=== PATIENT | female | born 1985 | race African-American/Black ===

== ENCOUNTER 2017-08-30 04:40 | Emergency (ER) | payer MEDICAID ==
[~2017-08-30] VITALS: Ht 167.6 cm; Wt 54.4 kg
[2017-08-30] MEDS ORDERED: Haloperidol Lactate 5 MG in D5W 55 ML IVPB ONE (05:15)
--- NOTE | 2017-08-30 05:35 | Emergency Room Report ---
History of Present Illness General Chief Complaint: Nausea Source: Patient Present Illness HPI This is a 32-year-old female with history diabetes. She also has a history of cyclic vomiting syndrome and gastroparesis. She presents with chief complaint abdominal pain with nausea and vomiting for the last 24 hours. No fever chills but no diarrhea. Similar symptom in the past. She been admitted to [facility] and [facility] multiple times. Most recently last month. Pain is 9 out of 10 sharp in nature. She had workup including endoscopy, ultrasound, multiple CT scan. Also had swallowing study and gastric emptying study. Allergies: Coded Allergies: NO KNOWN ALLERGIES (Unverified Allergy, Unknown, 06/27/15) Patient History Past Medical History: see triage record, old chart reviewed, DM Pertinent Family History: none Social History: Reports: drug use - marijuana, Denies: smoking Now: No Immunizations: other Reviewed Nursing Documentation: PMH: Agreed, PSxH: Agreed Nursing Documentation-PMH Hx Asthma: Yes Hx Gastrointestinal Problems: Yes - cyclic vomiting Review of Systems Eye: Denies: eye pain, blurred vision ENT: Denies: ear pain, nose congestion, throat swelling Respiratory: Denies: cough, shortness of breath Cardiovascular: Denies: chest pain, palpitations Gastrointestinal: Reports: abdominal pain, nausea, vomiting, Denies: diarrhea Musculoskeletal: Denies: back pain, joint pain Skin: Denies: rash Neurological: Denies: headache, numbness Endocrine: Denies: increased thirst, increased urine Hematologic/Lymphatic: Denies: easy bruising All Other Systems: negative except mentioned in HPI Physical Exam Vital Signs Date Time Temp Pulse Resp B/P (MAP) Pulse Ox O2 Delivery O2 Flow Rate FiO2 08/30/17 04:52 98.0 78 16 130/80 98 Room Air 98.1 Sp02 EP Interpretation: reviewed, normal General Appearance: well appearing, no apparent distress, alert Head: normocephalic, atraumatic Eyes: bilateral eye PERRL, bilateral eye EOMI ENT: hearing grossly normal, normal pharynx Neck: full range of motion, supple, no meningismus Respiratory: chest non-tender, lungs clear, normal breath sounds Cardiovascular #1: regular rate, rhythm, no murmur Gastrointestinal: no mass, no organomegaly, no bruit, non-distended, tenderness - mild, diffuse. Soft., decreased bowel sounds Musculoskeletal: back normal, gait/station normal, normal range of motion Psychiatric: mood/affect normal Skin: warm/dry Medical Decision Making Diagnostic Impression: Primary Impression: Cyclic vomiting syndrome Qualified Codes: G43.A1 - Cyclical vomiting, intractable Additional Impressions: Opiate dependence, continuous Hyperglycemia due to type 1 diabetes mellitus ER Course Patient with abdominal pain and cyclic vomiting syndrome/gastroparesis. She is asking for Dilaudid IV. No evidence of acute abdomen. No evidence of obstruction. We'll check labs and urine to see degree of dehydration. I will sign this patient out to Dr. Galvez for final disposition. If improved, may be discharged home. Lab Results Impression labs unremarkable except for elevated glucose Last Vital Signs Date Time Temp Pulse Resp B/P (MAP) Pulse Ox O2 Delivery O2 Flow Rate FiO2 08/30/17 04:52 98.0 78 16 130/80 98 Room Air 98.1 Status: improved Referrals: NOT CHOSEN SHERLYN/,REFERRING (PCP) BALAJI MCPHERSON M.D. Aug 30, 2017 05:35
[2017-08-30 05:43] LABS: BASOPHILS % (AUTO) 1.3 % (0.0-2.0); EOSINOPHILS % (AUTO) 7.6 % (0.0-3.0); HEMATOCRIT 30.9 % (37.0-47.0); HEMOGLOBIN 9.3 G/DL (12.0-16.0); LYMPHOCYTES % (AUTO) 45.9 % (20.0-45.0); MEAN CORPUSCULAR VOLUME 73 FL (80-99); MONOCYTES % (AUTO) 8.4 % (1.0-10.0); NEUTROPHILS % (AUTO) 36.9 % (45.0-75.0); PLATELET COUNT 261 K/UL (150-450); RED BLOOD COUNT 4.21 M/UL (4.20-5.40); RED CELL DISTRIBUTION WIDTH 17.3 % (11.6-14.8)
[2017-08-30] MEDS ORDERED: Haloperidol 5mg/ml Inj ONE (05:43)
[2017-08-30 05:57] LABS: ANION GAP 4 mmol/L (5-15); BLOOD UREA NITROGEN 22 mg/dL (7-18); CALCIUM 8.1 MG/DL (8.5-10.1); CARBON DIOXIDE 28 MMOL/L (21-32); CHLORIDE 106 MMOL/L (98-107); CREATININE 1.6 MG/DL (0.55-1.30); POTASSIUM 5.2 MMOL/L (3.5-5.1); SODIUM 138 MMOL/L (136-145)
[2017-08-30 06:02] LABS: ALANINE AMINOTRANSFERASE 20 U/L (12-78); ALBUMIN 1.9 G/DL (3.4-5.0); ALBUMIN/GLOBULIN RATIO 0.4 (1.0-2.7); ALKALINE PHOSPHATASE 147 U/L (46-116); ASPARTATE AMINO TRANSFERASE 21 U/L (15-37); BILIRUBIN,TOTAL 0.3 MG/DL (0.2-1.0)
[2017-08-30 06:35] VITALS: BP 125/56
[2017-08-30 08:31] VITALS: BP 112/87
[2017-08-30 08:33] VITALS: BP 112/87
== END 2017-08-30 08:33 | disposition home or self-care (01) ==
LOC: EMR 05:12
DX: G43.A0 Cyclical vomiting, in migraine, not intractable (principal); F11.20 Opioid dependence, uncomplicated; E10.65 Type 1 diabetes mellitus with hyperglycemia
CPT/HCPCS: 36415; 80053; 83690; 85025; 96361; 96374; 96375; 99284; J1630; J2550